=== PATIENT | male | born 1945 | race Caucasian/White ===

== ENCOUNTER → 2018-01-25 14:49 | Outpatient (CLI) | payer OTHER, SELFPAY ==
--- NOTE | 2018-01-25 14:55 | US_ITS ---
STUDY: SCROTUM ULTRASOUND REASON FOR EXAM: Male, 72 years old. Hydrocele TECHNIQUE: Ultrasound evaluation of the scrotum was performed with color Doppler and static li-scale imaging. COMPARISON: 01/17/2015. FINDINGS: RIGHT TESTICLE INTRATESTICULAR: There is a normal size of the right testicle. The right testicle measures 4.0 x 2.7 x 2.1 cm. There is a homogenous echotexture. There is normal arterial and normal venous vascularity. There is no demonstrated right testicular mass or cyst. EXTRATESTICULAR: There is a huge hydrocele that is even larger than on the previous study, measuring at least 8.2 cm greatest dimension. The epididymis is not adequately visualized. No gross varicocele. LEFT TESTICLE INTRATESTICULAR: There is a normal size of the left testicle. The left testicle measures 4.1 x 2.3 x 2.3 cm. There is a homogenous echotexture. There is normal arterial and normal venous vascularity. There is no demonstrated left testicular mass or cyst. EXTRATESTICULAR: The epididymis is normal in size. The epididymis head measures 1.6 cm. There is normal vascularity of the epididymis. There is a well-defined cystic structure within the epididymis, without internal echoes, consistent with an epididymal cyst. There is a moderate size hydrocele. There is no demonstrated varicocele. There is no demonstrated extratesticular mass or cyst. US/Testicular with Arterial Flow IMPRESSION: Normal bilateral testicles. No evidence for torsion. Huge right hydrocele, larger than previous study. Moderate left hydrocele. Electronically Signed: Rahat Magana MD at 10:55 EDT , Service support ,
== END ==
DX: N43.2 Other hydrocele (principal)
CPT/HCPCS: 76870; 93976

== ENCOUNTER → 2023-09-17 | Outpatient (CLI) | payer MEDICARE, SELFPAY ==
[2023-09-22 14:09] LABS: ACHR Recep AB, Blocking 16 % (0-25)
[2023-09-27 10:07] LABS: ACHR AB Modulating 0 % (0-45)
== END | disposition home or self-care (01) ==
PROVIDERS: Referring Provider Ophthalmology; Visit Provider Ophthalmology
DX: H53.2 Diplopia (principal); H02.409 Unspecified ptosis of unspecified eyelid
CPT/HCPCS: 36415; 83519